=== PATIENT | female | born 1995 | race Caucasian/White ===

== ENCOUNTER → 2016-10-17 | Outpatient (CLI) | payer OTHER | LOC: COL.RAD 10-15 08:15 | DX: G31.89 Other specified degenerative diseases of nervous system (principal); H90.42 Sensorineural hearing loss, unilateral, left ear, with unrestricted hearing on the contralateral side; J32.8 Other chronic sinusitis | CPT/HCPCS: A9585 ==

== ENCOUNTER 2020-12-20 13:34 | Outpatient (CLI) | payer OTHER ==
[~2020-12-20] VITALS: Ht 167.6 cm; Wt 66.9 kg
[2020-12-20] MEDS ORDERED: SINGULAIR 110 MG/TAB PO (14:52)
[2020-12-20] MEDS ORDERED: ZYRTEC 10MG10 MG PO (14:52)
[2020-12-20] MEDS ORDERED: RT ADVAIR 228 DISKUS IH (14:53)
[2020-12-20] MEDS ORDERED: PROAIR HFA0.09 MG/AC IH (14:53)
[2020-12-20 15:21] VITALS: BP 114/70; PULSE 83; TEMP 98.3
--- NOTE | 2020-12-20 15:21 | NUR ---
Xolair given for first time. Pt stayed an hour for observation. No adverse symptoms noted. Has EpiPens with for use as needed.
== END 2020-12-20 15:27 | disposition home or self-care (01) ==
LOC: EUO 13:34
DX: J45.909 Unspecified asthma, uncomplicated (principal); Z79.899 Other long term (current) drug therapy
CPT/HCPCS: J2357

== ENCOUNTER 2021-01-03 13:46 | Outpatient (CLI) | payer OTHER ==
[~2021-01-03] VITALS: Ht 167.6 cm; Wt 65.8 kg
[~2021-01-03 13:46] MED LIST: PROAIR HFA0.09 MG/AC IH; RT ADVAIR 228 DISKUS IH; SINGULAIR 110 MG/TAB PO; ZYRTEC 10MG10 MG PO
[2021-01-03 14:14] VITALS: BP 106/73; PULSE 83; TEMP 97.6
[2021-01-03] MEDS ORDERED: NATURAL IRON65 MG PO (14:27)
[2021-01-03] MEDS ORDERED: EPIPEN 2-PAK1 MG/ML IM (14:27)
[2021-01-03] MEDS ORDERED: VITAMIN B12 781 TAB PO (14:28)
[2021-01-03] MEDS ORDERED: VITAMIN D31000 I1 PO (14:28)
[2021-01-03] MEDS ORDERED: VTAMINC250TA PO (14:28)
== END 2021-01-03 14:53 | disposition home or self-care (01) ==
LOC: EUO 13:46
DX: J45.909 Unspecified asthma, uncomplicated (principal)
CPT/HCPCS: J2357

== ENCOUNTER 2021-01-23 13:33 | Outpatient (CLI) | payer OTHER ==
[~2021-01-23] VITALS: Ht 167.6 cm; Wt 65.2 kg
[~2021-01-23 13:33] MED LIST changes: +EPIPEN 2-PAK1 MG/ML IM; +NATURAL IRON65 MG PO; +VITAMIN B12 781 TAB PO; +VITAMIN D31000 I1 PO; +VTAMINC250TA PO
[2021-01-23 14:01] VITALS: BP 117/74; PULSE 86; TEMP 98.7
== END 2021-01-23 14:15 | disposition home or self-care (01) ==
LOC: EUO 13:33
DX: J45.50 Severe persistent asthma, uncomplicated (principal); Z79.899 Other long term (current) drug therapy
CPT/HCPCS: J2357

== ENCOUNTER 2021-02-06 13:23 | Outpatient (CLI) | payer OTHER ==
[~2021-02-06] VITALS: Ht 167.6 cm; Wt 65.4 kg
[2021-02-06 13:33] VITALS: BP 112/65; PULSE 89; TEMP 97.6
== END 2021-02-06 14:05 | disposition home or self-care (01) ==
LOC: EUO 13:23
DX: J45.50 Severe persistent asthma, uncomplicated (principal); Z79.899 Other long term (current) drug therapy
CPT/HCPCS: J2357

== ENCOUNTER 2021-02-20 13:26 | Outpatient (CLI) | payer OTHER ==
[~2021-02-20] VITALS: Ht 167.6 cm; Wt 65.6 kg
[2021-02-20 13:38] VITALS: BP 102/68; PULSE 81; TEMP 98.3
== END 2021-02-20 14:30 | disposition home or self-care (01) ==
LOC: EUO 13:26
DX: J45.50 Severe persistent asthma, uncomplicated (principal); Z79.899 Other long term (current) drug therapy
CPT/HCPCS: J2357

== ENCOUNTER 2021-03-06 13:19 | Outpatient (CLI) | payer OTHER ==
[~2021-03-06] VITALS: Ht 167.6 cm; Wt 63.2 kg
[2021-03-06 13:39] VITALS: BP 111/60; PULSE 89; TEMP 97.9
== END 2021-03-06 13:55 | disposition home or self-care (01) ==
LOC: EUO 13:19
DX: J45.50 Severe persistent asthma, uncomplicated (principal); Z79.899 Other long term (current) drug therapy

== ENCOUNTER 2021-03-22 14:01 | Outpatient (CLI) | payer OTHER ==
[~2021-03-22] VITALS: Ht 167.6 cm; Wt 66.2 kg
[2021-03-22 14:43] VITALS: BP 110/70; PULSE 78; TEMP 98.4
== END 2021-03-22 14:46 | disposition home or self-care (01) ==
LOC: EUO 14:01
DX: J45.50 Severe persistent asthma, uncomplicated (principal); Z79.899 Other long term (current) drug therapy
CPT/HCPCS: J2357

== ENCOUNTER 2021-04-05 13:46 | Outpatient (CLI) | payer OTHER ==
[~2021-04-05] VITALS: Ht 167.6 cm; Wt 65.8 kg
[2021-04-05 14:03] VITALS: BP 107/69; PULSE 83; TEMP 98
[2021-04-05] MEDS ORDERED: PRENATAL TABLET PO (14:03)
== END 2021-04-05 14:34 ==
LOC: EUO 13:46
DX: J45.50 Severe persistent asthma, uncomplicated (principal); Z79.899 Other long term (current) drug therapy
CPT/HCPCS: J2357

== ENCOUNTER 2021-04-19 14:01 | Outpatient (CLI) | payer OTHER ==
[~2021-04-19] VITALS: Ht 167.6 cm; Wt 66.0 kg
[~2021-04-19 14:01] MED LIST changes: +PRENATAL TABLET PO
[2021-04-19 14:33] VITALS: BP 112/68; PULSE 91; TEMP 98.4
== END 2021-04-19 18:17 | disposition home or self-care (01) ==
LOC: EUO 14:01
DX: J45.50 Severe persistent asthma, uncomplicated (principal); Z79.899 Other long term (current) drug therapy
CPT/HCPCS: J2357

== ENCOUNTER 2021-05-03 13:48 | Outpatient (CLI) | payer OTHER ==
[~2021-05-03] VITALS: Ht 167.6 cm; Wt 67.0 kg
[2021-05-03 14:06] VITALS: BP 131/83; PULSE 78; TEMP 98.7
== END 2021-05-03 14:22 | disposition home or self-care (01) ==
LOC: EUO 13:48
DX: J45.50 Severe persistent asthma, uncomplicated (principal); Z79.899 Other long term (current) drug therapy
CPT/HCPCS: J2357

== ENCOUNTER 2021-05-17 13:57 | Outpatient (CLI) | payer OTHER ==
[~2021-05-17] VITALS: Ht 167.6 cm; Wt 66.8 kg
[2021-05-17 14:09] VITALS: BP 104/74; PULSE 84; TEMP 98.7
== END 2021-05-17 14:45 ==
LOC: EUO 13:57
DX: J45.50 Severe persistent asthma, uncomplicated (principal)
CPT/HCPCS: J2357

== ENCOUNTER 2021-06-02 15:53 | Outpatient (CLI) | payer OTHER ==
[~2021-06-02] VITALS: Ht 167.6 cm; Wt 66.8 kg
[2021-06-02 16:23] VITALS: BP 108/72; PULSE 81; TEMP 98.5
== END 2021-06-02 16:25 ==
LOC: EUO 15:53
DX: J45.50 Severe persistent asthma, uncomplicated (principal); Z79.899 Other long term (current) drug therapy
CPT/HCPCS: J2357